=== PATIENT | female | born 1985 | race Caucasian/White ===

== ENCOUNTER 2021-09-27 13:10 | Emergency (ER) | payer OTHER ==
[2021-09-27 13:32] VITALS: BP 128/75; PULSE 75; RESP 18; TEMP 97.8; BMI 28.1
[2021-09-27] MEDS ORDERED: KETOROLAC TROMETHAMINE 30 MG/1 ML VIAL IM ONE (13:38)
[2021-09-27] MEDS ORDERED: CYCLOBENZAPRINE HCL 10 MG TABLET (FP) ONE (14:31)
[2021-09-27] MEDS ORDERED: KETOROLAC TROMETHAMINE 30 MG/1 ML VIAL ONE (14:32)
[2021-09-27] MEDS ORDERED: CYCLOBENZAPRINE HCL 10 MG TABLET (FP) PO ONE (14:45)
== END 2021-09-27 15:17 | disposition home or self-care (01) ==
LOC: JERFT 13:10
PROC: 3E023GC Introduction of Other Therapeutic Substance into Muscle, Percutaneous Approach (ICD-10-PCS; principal; 2021-09-27)
DX: M54.50 Low back pain, unspecified (principal)
CPT/HCPCS: 72100-TC-FY; 96372; 99284-25

== ENCOUNTER 2021-10-15 19:39 | Emergency (ER) | payer OTHER ==
[2021-10-15 20:30] VITALS: RESP 18; TEMP 98.1
[2021-10-15 20:31] VITALS: BP 134/85; PULSE 61; BMI 28.3
[2021-10-15] MEDS ORDERED: KETOROLAC TROMETHAMINE 30 MG/1 ML VIAL IM ONE (21:54)
[2021-10-15] MEDS ORDERED: KETOROLAC TROMETHAMINE 30 MG/1 ML VIAL ONE (22:04)
== END 2021-10-15 22:15 | disposition home or self-care (01) ==
LOC: JERFT 19:39
PROC: 3E0233Z Introduction of Anti-inflammatory into Muscle, Percutaneous Approach (ICD-10-PCS; principal; 2021-10-15)
DX: M54.50 Low back pain, unspecified (principal)
CPT/HCPCS: 99283-25